=== PATIENT | female | born 2000 | race Caucasian/White ===

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

== ENCOUNTER → 2019-10-17 | Outpatient (CLI) | payer OTHER ==
--- NOTE | 2019-10-17 13:30 | Diagnostic Imaging Report ---
PROCEDURE: CT abdomen and pelvis without contrast. TECHNIQUE: Multiple contiguous axial images were obtained through the abdomen and pelvis without the use of intravenous contrast. Auto Exposure Controls were utilized during the CT exam to meet ALARA standards for radiation dose reduction. INDICATION: Left flank pain. Hematuria. COMPARISON: None FINDINGS: Included portions of the lung bases show small subpleural micronodule within the posterior lateral left lower lobe that measures 3 mm (image 10, series 2). CT ABDOMEN: Normal appendix is identified. Small bowel loops are nondistended. Ureters cannot be followed in their entirety, but no calculi are seen along the expected course of the ureters. Additionally, there is no hydronephrosis or other evidence of obstruction. No renal calculi are identified. No focal renal masses are seen on this noncontrast exam. The adrenal glands, spleen, pancreas, and liver have an unremarkable noncontrast CT appearance. There is no loculated fluid collection, free fluid, nor free air within the abdomen. No abnormal mesenteric or retroperitoneal adenopathy is seen. Osseous structures show no acute abnormalities. CT PELVIS: Urinary bladder is unopacified. No calculi are seen within the urinary bladder. There is no loculated fluid collection, free fluid, nor free air. No abnormal pelvic adenopathy is seen. Hypodense filling defect is noted within the vagina; likely a tampon. Osseous structures show no acute abnormalities. IMPRESSION: 1. Unremarkable noncontrast CT of the abdomen and pelvis. 2. Small micronodule within the left lower lobe. Given the patient's age, benignity is favored. If indicated, one year follow-up could be performed to ensure stability. Dictated by: Dictated on workstation # [id number]
== END ==
LOC: RAD 13:03
PROVIDERS: ATTEND Internal Medicine
DX: R31.9 Hematuria, unspecified (principal); M54.5 Low back pain; R91.1 Solitary pulmonary nodule
CPT/HCPCS: 74176

== ENCOUNTER 2020-06-06 04:45 | Emergency (ER) | payer OTHER ==
[~2020-06-06] VITALS: Ht 170 cm; Wt 102.0 kg
--- NOTE | 2020-06-06 05:05 | ED Lower Extremity ---
General Chief Complaint: Lower Extremity Stated Complaint: LEFT LEG PAINFUL & NUMB,HARD TO MOVE TOES,LEFT CARMEN Source: patient History of Present Illness Date Seen by Provider: Jun 06, 2020 Time Seen by Provider: 04:53 Initial Comments PT ARRIVES VIA POV, WANTS WHEELCHAIR ON ARRIVAL STATES SHE HAS BEEN OUT WITH FRIENDS ALL NIGHT AND HAS BEEN FINE, GOT HOME 1-2 HOURS AGO, AND BEGAN HAVING PAIN IN LEFT LEG AND FOOT--PAIN BEGINS IN LEFT LOWER BACK/BUTTOCK AREA AND GOES ALL THE WAY DOWN TO FOOT STATES IS HARD TO MOVE TOES OR STAND DUE TO PAIN STATES LEG IS VERY PAINFUL, BUT IS "NUMB" RATES PAIN --HAS NOT TAKEN ANYTHING FOR PAIN NO KNOWN INJURY NO HISTORY OF SIMILAR NO PROBLEMS URINATING NO FEVER PT HAS BEEN DRINKING AT A BAR TONIGHT WITH FRIENDS STATES SHE WAS SITTING AT HER DESK AT HOME, WHEN SHE BEGAN TO HAVE PAIN AND NUMBNESS IN HER LEFT LEG AND FOOT LMP --NOW PT TESTED + FOR COVID OVER 3 WEEKS AGO--IS NOT HAVING ANY SYMPTOMS NOW PT IS [facility] [facility] Allergies and Home Medications Allergies Coded Allergies: No Known Drug Allergies (Unverified , 06/06/20) Home Medications Cyclobenzaprine HCl 10 Mg Tablet, 10 MG PO Q8H PRN for SPASMS Prescribed by: JORGE TAYLOR on 06/06/20613 Methylprednisolone 4 Mg Tab.ds.pk, 4 MG PO UD PER DOSE PACK INSTRUCTIONS Prescribed by: JORGE TAYLOR on 06/06/20613 Patient Home Medication List Home Medication List Reviewed: Yes Review of Systems Constitutional: no symptoms reported EENTM: no symptoms reported Respiratory: no symptoms reported Cardiovascular: no symptoms reported Gastrointestinal: no symptoms reported Genitourinary: no symptoms reported LMP: Jun 06, 2020 Control/STD Prophylaxis: None Musculoskeletal: see HPI, back pain, other (LEFT LEG AND FOOT PAIN) Skin: no symptoms reported; No rash Psychiatric/Neurological: See HPI, Numbness, Paresthesia, Tingling Past Bbrrgso-Gzeibn-Ulturs Hx Past Med/Social Hx: Reviewed and Corrections made Patient Social History Alcohol Use: Regular Use Recreational Drug Use: No Smoking Status: Never a Smoker Recent Foreign Travel: No Contact w/Someone Who Travel: No Past Medical History Surgeries: Yes (RIGHT SHOUJLDER SURGERY X 2) Orthopedic Respiratory: No Cardiac: No Neurological: No : No Reproductive Disorders: No Genitourinary: No Gastrointestinal: No Musculoskeletal: No Endocrine: No (OBESE) HEENT: No Cancer: No Psychosocial: No Integumentary: No Blood Disorders: No Physical Exam Vital Signs Vital Signs - First Documented 06/06/20 04:52 Temp 36.0 Pulse 105 Resp 18 B/P (MAP) 117/72 (87) O2 Delivery Room Air Capillary Refill : Height, Weight, BMI Height: '" Weight: lbs. oz. kg; BMI Method: General Appearance: WD/WN, no apparent distress, obese Neck: non-tender, full range of motion, supple, normal inspection Cardiovascular: normal peripheral pulses, regular rate, rhythm, no edema, no JVD, no murmur Respiratory: normal breath sounds, no respiratory distress Gastrointestinal: non tender, soft Back: no CVA tenderness, other (TENDERNESS OVER LEFT SI JOINT) Legs: right leg normal inspection; left leg other (LIMITED ROM OF LEFT LEG DUE TO PAIN--BUT IS ABLE TO MOVE LEG, AND TOES; DOES HAVE SENSATION, DTR'S +4/4 BILATERALLY. VASCULAR INTACT. NO SWELLING OR DISCOLORATION. 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, alert, normal mood/affect, oriented x 3 Skin: normal color, warm/dry; No ecchymosis, No rash Progress/Results/Core Measures Results/Orders Lab Results Laboratory Tests Test 06/06/20 05:05 Range/Units Urine Color YELLOW Urine Clarity CLEAR Urine pH 6.0 5-9 Urine Specific Sargent <=1.005 1.016-1.022 Urine Protein NEGATIVE NEGATIVE Urine Glucose (UA) NEGATIVE NEGATIVE Urine Ketones NEGATIVE NEGATIVE Urine Nitrite NEGATIVE NEGATIVE Urine Bilirubin NEGATIVE NEGATIVE Urine Urobilinogen 0.2 < = 1.0 MG/DL Urine Leukocyte Esterase NEGATIVE NEGATIVE Urine RBC (Auto) NEGATIVE NEGATIVE Urine RBC NONE /HPF Urine WBC NONE /HPF Urine Squamous Epithelial Cells 0-2 /HPF Urine Crystals NONE /LPF Urine Bacteria NEGATIVE /HPF Urine Casts NONE /LPF Urine Mucus NEGATIVE /LPF Urine Culture Indicated NO My Orders Orders - JORGE TAYLOR DO Ct Lumbar Spine Wo (06/06/20 04:58) Ua Culture If Indicated (06/06/20 04:58) Urine Bedside (06/06/20 04:58) Ketorolac Injection (Toradol Injection) (06/06/20 05:15) Orphenadrine Inj (Ed Only) (Norflex Inje (06/06/20 05:15) Diphenhydramine Injection (Benadryl Inje (06/06/20 05:15) Medications Given in ED Current Medications Medications Dose Ordered Sig/Abena Route Start Time Stop Time Status Last Admin Dose Admin Diphenhydramine HCl 50 mg ONCE ONCE IM 06/06/20 05:15 06/06/20 05:17 DC 06/06/20 05:35 50 MG Ketorolac Tromethamine 60 mg ONCE ONCE IM 06/06/20 05:15 06/06/20 05:17 DC 06/06/20 05:34 60 MG Orphenadrine Citrate 60 mg ONCE ONCE IM 06/06/20 05:15 06/06/20 05:17 DC 06/06/20 05:34 60 MG Vital Signs/I&O 06/06/20 04:52 Temp 36.0 Pulse 105 Resp 18 B/P (MAP) 117/72 (87) O2 Delivery Room Air Progress Progress Note : Progress Note GIVEN TORADOL, NORFLEX, BENADRYL WITH IMPROVEMENT IN SYMPTOMS PT IS FREELY USING LEG, PT IS ABLE TO WALK ON HER OWN WITHOUT ANY DIFFICULTY, PRIOR TO DISMISSAL. PT WALKED OUT OF ER ON HER OWN. Diagnostic Imaging Comments CT LUMBAR SPINE--MILD NARROWING L5-S1 DISC SPACE WITH MILD DISC BULGING, MILD L4-L5 DISC BULGING, NO SIGNIFICANT NARROWING OF SPINAL CANAL OR NEURAL FORAMINA. PER [facility] VIA FAX AT [phone] Reviewed: Reviewed by Me Departure Impression Primary Impression: Left-sided low back pain with left-sided sciatica Additional Impression: Bulging of intervertebral disc between L4 and L5 Disposition: HOME, SELF-CARE Condition: Improved Departure-Patient Inst. Referrals: [facility] (PCP/Family) Primary Care Physician Patient Instructions: Radiculopathy (DC), Sciatica (DC) Add. Discharge Instructions: ALTERNATE ICE AND HEAT TO LOWER BACK AREA AT 20 MINUTE INTERVALS NO LIFTING OVER 5 LBS, NO TWISTING OR BENDING AT WAIST X 1 WEEK FOLLOW UP WITH [facility] IN 4-5 DAYS FOR FURTHER CARE All discharge instructions reviewed with patient and/or family. Voiced understanding. Scripts Cyclobenzaprine HCl (Cyclobenzaprine HCl) 10 Mg Tablet 10 MG PO Q8H PRN for SPASMS, #15 TAB 0 Refills Prov: JORGE TAYLOR DO 06/06/20 Methylprednisolone (Medrol) 4 Mg Tab.ds.pk 4 MG PO UD for 6 Days, #21 PKG PER DOSE PACK INSTRUCTIONS Prov: JORGE TAYLOR DO 06/06/20 JORGE TAYLOR DO Jun 06, 2020 05:05
[2020-06-06 05:12] LABS: BILIRUBIN,URINE NEGATIVE (NEGATIVE); CLARITY,URINE CLEAR; COLOR,URINE YELLOW; GLUCOSE, URINE (UA) NEGATIVE (NEGATIVE); KETONES,URINE NEGATIVE (NEGATIVE); LEUKOCYTE ESTERASE ,URINE NEGATIVE (NEGATIVE); NITRITE,URINE NEGATIVE (NEGATIVE); PROTEIN,URINE NEGATIVE (NEGATIVE)
[2020-06-06] MEDS ORDERED: diphenhydrAMINE 50 MG/ML INJ (BENADRYL) IM ONE (05:15)
[2020-06-06] MEDS ORDERED: KETOROLAC 60 MG/2 ML VIAL IM ONE (05:15)
[2020-06-06] MEDS ORDERED: ORPHENADRINE 60 MG/2 ML (NORFLEX) AMP (ED ONLY) IM ONE (05:15)
[2020-06-06 05:30] LABS: BACTERIA,URINE NEGATIVE /HPF; SQUAMOUS EPITHELIAL CELL,UR 0-2 /HPF
--- NOTE | 2020-06-06 05:59 | Diagnostic Imaging Report ---
PROCEDURE: CT lumbar spine without contrast. TECHNIQUE: Multiple contiguous axial images were obtained through the lumbar spine without the use of intravenous contrast. Sagittal and coronal reformations were then performed. Auto Exposure Controls were utilized during the CT exam to meet ALARA standards for radiation dose reduction. INDICATION: Left lower extremity pain and paresthesia. FINDINGS: Lumbar spinal curvature and alignment are unremarkable. Vertebral body heights are maintained. There is mild annular bulging of the L4-L5 and L5-S1 discs. There is no evidence of fracture or malalignment. There is no CT evidence of spinal stenosis. No paraspinous abnormality is identified. IMPRESSION: Mild disc bulging of L4-L5 and L5-S1 discs without evidence of significant spinal stenosis. If further evaluation is warranted, consideration could be given to MRI. Dictated by: Dictated on workstation # [id number]
--- NOTE | 2020-06-06 06:05 | NUR ---
PT AMBULATING IN ROOM WITHOUT DIFFICULTY. NO DISTRESS NOTED.
[2020-06-06] MEDS ORDERED: CYCL10TA9 PO (06:14)
[2020-06-06] MEDS ORDERED: METH4TAB PO (06:14)
[2020-06-06 06:23] VITALS: BP 115/71
== END 2020-06-06 06:23 | disposition home or self-care (01) ==
LOC: EDUNIT# 04:45 → ER 04:48
DX: M54.42 Lumbago with sciatica, left side (principal); M51.26 Other intervertebral disc displacement, lumbar region; E66.9 Obesity, unspecified; Z68.35 Body mass index [BMI] 35.0-35.9, adult; Z86.19 Personal history of other infectious and parasitic diseases
CPT/HCPCS: 72131; 81000; 84703